=== PATIENT | female | born 1955 | race Caucasian/White ===

== ENCOUNTER 2025-06-10 23:41 | Observation (INO) | payer MEDICARE, BC, SELFPAY ==
[2025-06-10 17:46] VITALS: BP 160/106
[2025-06-10] MEDS: ROXICODONE 5 MG PO (21:27)
[2025-06-10 23:29] VITALS: BP 98/66
--- NOTE | 2025-06-10 23:46 | HPS.HSE ---
Family Physician
-
Family Physician: * NONE
Chief Complaint
-
right ankle and right wrist
History of Present Illness
69-year-old female without any medical history presenting with severe right ankle pain and swelling after she kicked a log today. After she kicked a log she lost her balance and fell onto her wrist with severe wrist pain. She also complains of
pain in her right knee.
She denies smoking or alcohol or drugs.
Medical History
Past Medical History
Past Medical History: Reports None
Past Surgical History: Reports None
Social History
Tobacco: Non-smoker
Family History
Family History: Not pertinent
Allergies / Home Medications
Allergies reflects when Allergies were last updated in [employer].
Home Medications with original date entered in [employer]
Allergy/Medication List:
Allergies
Allergy/AdvReac Type Severity Reaction Status Date / Time
No Known Allergies Allergy Unverified 06/10/25 17:48
Review of Systems
-
History Source: Patient
A 12 point ROS was completed and negative except as noted: Yes
Constitutional: Reports No Symptoms
EENT: Reports No Symptoms
Respiratory: Reports No Symptoms
Cardiac: Reports No Symptoms
Abdomen/GI: Reports No Symptoms
: Reports No Symptoms
Musculoskeletal: Reports See HPI
Skin: Reports No Symptoms
Neurological: Reports No Symptoms
Endocrine: Reports No Symptoms
Hematologic/Lymphatic: Reports No Symptoms
Psych: Reports No Symptoms
Physical Exam
Vital Signs
Vital Signs
Temp Pulse Resp BP Pulse Ox
98 F 98 18 98/66 97
06/10/25 17:46 06/10/25 23:29 06/10/25 23:29 06/10/25 23:29 06/10/25 23:29
Physical Exam
General: Well Developed, Well Nourished and No Apparent Distress
HEENT: NormoCephalic, Moist mucous membranes and Atraumatic
Respiratory: Clear
Cardiac: S1/S2 and Regular Rhythm; No Murmur or Rub
GI: Soft, Non Tender, Non Distended and Normal Bowel Sounds; No Organomegaly
Rectal: Deferred by Provider
Musculoskeletal: No Clubbing, No Cyanosis, No Edema and Other (swelling right ankle )
Skin: No Rash
Neuro: Nonfocal/grossly intact
Data Reviewed
-
Lab Data: Labs Reviewed by me
Old Records: Reviewed
Impression/Plan
-
IMPRESSION:
PLAN:
# Distal right radius/ulna fractures
# Nondisplaced distal right fibular/tibia fractures
-wrist splint placed, ankle splint to be plced
- Tylenol, Toradol for pain, oxycodone if needed
-Blood pressure dropped from 160-98 after receiving oxycodone
-Knee x-ray pending
-CBC BMP pending
- Ortho consulted
Full code
DVT prophylaxis-sequential left leg
Regular diet
--- NOTE | 2025-06-10 23:55 | ED.GENMED ---
History of Present Illness
General
Chief Complaint: Fall
Source: patient
Exam Limitations: none
Time Seen by Provider: 06/10/25 19:54
Nursing documentation reviewed up to this point in time: agreed with
History of Present Illness
History of Present Illness:
Note:
CHIEF COMPLAINT(S)
Fractured wrist and fractured ankle.
HISTORY OF PRESENT ILLNESS
The patient is a 69-year-old female who presents with a fractured wrist and ankle. The fractures are described as non-displaced and are considered good breaks, indicating they are not severely misaligned. The patient describes the injury as
occurring while trying to remove a log, during which she twisted her ankle and subsequently fell onto her wrist. She reports that the fractured wrist is particularly problematic because it hinders her ability to use crutches effectively.
Discussion involved potential management strategies and the consideration of admission to the hospital for rehabilitation due to the difficulty in ambulating safely at home with the current injuries. Theres also concern about the feasibility of
using a walker given the wrist injury. The possibility of using a walking boot at home is being explored, pending orthopedic consultation.
ADDITIONAL HISTORY OBTAINED FROM SOURCES OTHER THAN THE PATIENT
No additional history was provided from sources other than the patient in the conversation.
PHYSICAL EXAM
General: Alert, no acute distress.
Skin: Warm, dry.
Head: Normocephalic, atraumatic.
Neck: Supple, trachea midline.
Eye Ears, nose, mouth and throat: Oral mucosa moist.
Cardiovascular: Normal peripheral perfusion, No edema.
Respiratory: Respirations are non-labored.
Gastrointestinal: Abdomen nondistended.
Back: Normal range of motion, Normal alignment.
Musculoskeletal: Normal range of motion, normal strength, except as noted: Fractured wrist and ankle.
Neurological: Alert and oriented to person, place, time, and situation, No focal neurological deficit observed.
Psychiatric: Cooperative, appropriate mood & affect.
PLAN
The plan includes applying a splint for support and consulting with orthopedic specialists to explore the possibility of using a walking boot to aid mobility at home. The patient may need admission for short-term rehabilitation to ensure safety and
proper care due to the multiple fractures.
DIFFERENTIAL DIAGNOSIS
The Differential Diagnosis includes, in no particular order and is not limited to:
1. Ankle Fracture
2. Distal Radius Fracture
3. Wrist Sprain
4. Ankle Sprain
5. Osteoporosis-related Fracture
6. Soft Tissue Injury of Wrist
7. Ligamentous Injury to Ankle
8. Tibia Fracture
9. Fibula Fracture
10. Tendon Injury in Wrist
Disposition:
SUMMARY OF ENCOUNTER
The patient, a 69-year-old female, presented to the emergency department with a right wrist fracture and a right ankle fracture. Due to the wrist fracture, she is unable to effectively use crutches or a walker, impeding her ability to safely
ambulate at home, where there are multiple steps. These circumstances prompted consideration for her admission to the hospital for short-term rehabilitation. The fractures are non-displaced, indicating they are not severely misaligned or
necessitating emergency surgical intervention.
DISPOSITION
Admit.
MANAGEMENT OF THE PATIENTS CARE WAS DISCUSSED WITH
Hospitalist was informed and involved in the plan for the patients admission and potential rehabilitation needs.
PLAN
The patient will be admitted for further evaluation and management of her wrist and ankle fractures. Consultation with orthopedic specialists will continue to determine if splinting or other management strategies, such as a walking boot, could be
employed to aid in her mobility. Assessment for potential rehabilitation placement will be conducted to ensure safe and appropriate recovery given her living situation with multiple steps at home.
MEDICAL DECISION MAKING
-Complexity of Data Reviewed:
Ankle Fracture
Distal Radius Fracture
Wrist Sprain
Ankle Sprain
Osteoporosis-related Fracture
Soft Tissue Injury of Wrist
Ligamentous Injury to Ankle
Tibia Fracture
Fibula Fracture
Tendon Injury in Wrist
-Data:
Category 3
Discussion of management with other physician, healthcare provider, other source: Hospitalist was consulted and arrangements for potential rehabilitation placement were discussed. Coordination involved monitoring the potential need for orthopedic
consultation.
DIAGNOSIS
- Right Wrist Fracture: S62.90XA
- Right Ankle Fracture: S82.90XA
Phy Exam
Physical Exam
Physical Exam:
.
Course
Orders/Labs/Results
Orders:
Orders
06/10/25 17:48
Ankle, Right 3 view CR [CR Ankle - Right Min 3 Views *] Urgent
Comment:
Reason For Exam: fall
CR Wrist - Right Min 3 Views Urgent
Comment:
Reason For Exam: fall
06/10/25 21:24
Oxycodone [Roxicodone] 5 mg PO NOW STA
06/10/25 23:27
Knee, Right 4 or More Views [CR Knee- Right 4 Or More View*] Urgent
Comment:
Reason For Exam: pain after fall
06/10/25 23:40
BMP [Basic Metabolic Panel] Urgent
CBC/No Diff [Complete Blood Count/No Diff] Urgent
06/10/25 23:41
Admit/Transfer Patient As Directed
Co-Sign Provider:
Level of Care: Observation services
Assign to:: Medical/Surgical
Physician / Group: Bruce
Diagnosis: Wrist and Ankle Fracture
06/10/25 23:44
PRN Pain Medication Management As Directed
May give lesser potent ordered pain med per pt: Yes
preference::
Protocol:: Medication orders for pain may be administered in a
manner that supports deferring to patient preference
when the pt is:
- Requesting an ordered lesser potent pain medication.
Least to most potent pain medications are defined
as: acetaminophen < NSAID < tramadol < opioids
(morphine, oxycodone, hydromorphone).
- Requesting a lesser dose of the same medication IF
ORDERED.
- Requesting a less intrusive route of administration
if both routes are prescribed by the provider (PO <
IV).
06/10/25 23:45
Code Status As Directed
Resuscitation Status: Full Code
06/11/25 00:00
Case Management Consult ONCE
Case Management Consult: Discharge Planning
06/11/25 00:18
Acetaminophen [Tylenol] 1,000 mg PO Q6HPRN PRN
Ketorolac [Toradol] 10 mg IV Q6HPRN PRN
Oxycodone [Roxicodone] 2.5 mg PO Q4HPRN PRN
06/11/25 00:18
ORTHOPEDIC CONSULT Routine
Consulting Provider: Rishabh Allen
Was physician already notified: Yes
Activity As Directed
Activity Level: Out of Bed- Chair
Bladder Scan As Directed
Follow Bladder Retention/Intermittent Cath Algorithm?: Yes
PRN if no void in __ hours: 6
Frequency: Per Retention Algorithm
If Bladder Scan Result >: 400
then:: Straight cath
Pneumatic Compression Sleeves As Directed
Type: Knee high
Straight Cath As Directed
Frequency: Per Retention Algorithm
Additional Instructions: straight cath as needed per acute urinary retention algorithm for 24 hrs
Additional Instructions: for bladder scan greater than 400 mL
Vital Signs As Directed
Frequency: Per unit guidelines
Weight Bearing Status As Directed
Weight bearing to: Right lower extremity
Type: Non Wt. bearing
Weight Bearing Status As Directed
Weight bearing to: Right upper extremity
Type: Non Wt. bearing
Ot Eval And Treat Routine
Pt Eval And Treat Routine
Activity Level: Out of Bed-Early Mobility
DX Deep Vein Thrombosis Video Routine
06/11/25 22:00
Latanoprost [Xalatan Ophthalmic Solution] 1 drop BOTH EYES HS
Vital Signs
Initial and Last Documented VS:
Initial Vital Signs
Temp Pulse Resp BP Pulse Ox
98 F 94 16 160/106 98
06/10/25 17:46 06/10/25 17:46 06/10/25 17:46 06/10/25 17:46 06/10/25 17:46
Last Documented Vital Signs
Temp Pulse Resp BP Pulse Ox
98.6 F 85 19 159/82 97
06/11/25 01:02 06/11/25 01:02 06/11/25 01:02 06/11/25 01:02 06/11/25 01:02
*Radiology
Radiology exam reviewed: radiology read reviewed
*Pulse Oximetry
SaO2: 97
Oxygen Mode of Delivery: Room air
Patient hypoxic: no
*Critical Care Note
Total Time (30-74mins, 75-104mins- exclusive of procedures): Not Applicable
ED Attending Note
-
Portions of this chart may have been created with voice recognition software.� Occasional wrong word or��sound alike� substitutions may have occurred due to the inherent limitations of voice recognition software.
Discharge Plan
Departure
Patient Disposition: Admit
Date of Disposition: 06/10/25
Time of Disposition: 23:55
Presentation/result/management discussed w/ accepting MD/DO: Hospitalist
Condition: Fair
Discharge Problem:
Ankle fracture, Fracture of wrist
Interventions
Interventions:
*Risk Screen - Suicide Last Done: 06/11/25 01:00
*General Assessment Last Done: 06/10/25 21:48
*Neglect/Abuse Screening Last Done: 06/10/25 17:49
*ED COVID-19 Vaccine History Last Done: 06/11/25 01:00
*ED Influenza Vaccine History Last Done: 06/10/25 21:48
*Nursing Disposition Last Done: 06/11/25 00:47
ED-Musculoskeletal Assessment Last Done: 06/10/25 21:48
ED- Neurological Assessment Last Done: 06/10/25 21:48
ED-Skin Assessment Last Done: 06/10/25 21:48
[2025-06-11] MEDS: TORADOL 10 MG IV (00:26)
[2025-06-11 00:33] LABS: Hematocrit 41.5 % (37.0-47.0); Hemoglobin 13.4 g/dL (12.0-16.0); Mean Corp Hgb Conc. 32.3 g/dL (33.0-37.0); Mean Corpuscular Volume 93.9 fL (81.0-99.0); Platelet Count 260 10^3/uL (130-400); Red Cell Dist. Width 13.4 % (11.5-14.5)
[2025-06-11 00:48] LABS: Blood Urea Nitrogen 16 mg/dl (7-17); Calcium 8.8 mg/dl (8.4-10.2); Carbon Dioxide 28 mmol/L (22-30); Chloride 103 mmol/L (98-107); Glucose 130 mg/dl (70-99); Potassium 3.9 mmol/L (3.5-5.1); Sodium 138 mmol/L (135-145); eGFR > 60.00
--- NOTE | 2025-06-11 00:50 | PTCARENOTE ---
Pt arrived to 2S @0050 from ED. Pt safely transferred from the stretcher to the bed. Pt AOX3, VSS. Admission assessment complete. Pt oriented to room, call jensen within reach, bed locked in lowest position, care ongoing.
[2025-06-11 01:02] VITALS: BP 159/82; BMI 38.9
--- NOTE | 2025-06-11 03:30 | DOWNTIME ---
There was a [employer] Member Downtime on 06/11/2025 from 0100 to 06/11/2025 at 0255. Downtime documentation of patient's care, including medication administrations, has been reconciled in the electronic record per guidelines. Refer to the
patient's paper chart under the miscellaneous tab to see printed paper medication records and downtime forms.
[2025-06-11] MEDS: ROXICODONE 2.5 MG PO ×2 (04:18→16:14)
[2025-06-11 07:00] VITALS: BP 152/86
--- NOTE | 2025-06-11 09:46 | CON.ORTHO ---
Consultation
-
Date/Time Consultation Requested: 06/11/2025; time unknown
Date/Time Consultation Performed: 06/11/2025; 0730
Requesting Provider: unknown
Performing Provider: Mandy Winters PA-C for Dr. Rishabh Allen
Reason for Consultation: Right distal radius fracture; right ankle fracture
Consultation - Orthopedics
History
Elizabeth is a 69 year old female with no reported past medical history seen today for her right wrist and ankle. She reports she was attempted to kick a log into the [employer], but lost her balance and fell. She reports immediate onset of pain in her
wrist and ankle. She was able to get herself to a phone to call her son for assistance. They brought her to ED for evaluation where x-rays revealed a distal radius fracture and distal tib/fib fracture. These were both splinted in the emergency
department. She is resting comfortably in bed this morning, but does endorse pain in both of these areas. She denies pain elsewhere.
Allergies / Home Medications
Allergy/AdvReac Type Severity Reaction Status Date / Time
No Known Allergies Allergy Unverified 06/10/25 17:48
�Medication �Instructions �Recorded
latanoprost 0.005 % eye drops 1 drp ophthalmic (eye) HS 06/10/25
Vital Signs / Lab Results
Temp Pulse Resp BP Pulse Ox
98.4 F 80 20 152/86 95
06/11/25 07:00 06/11/25 07:00 06/11/25 07:00 06/11/25 07:00 06/11/25 07:00
06/11/25 00:23
06/11/25 00:23
XR Right Ankle FINDINGS:
Bones: There is a nondisplaced oblique fracture of the distal fibular shaft. There is a similar finding of the distal tibia involving the metadiaphysis...
Ankle mortise: The ankle mortise is preserved.
Soft tissue: There is severe soft tissue swelling about the lateral malleolus. There is mild soft tissue swelling about the medial malleolus.
XR Right Wrist FINDINGS:
There is an acute comminuted impacted right distal radial metaphyseal fracture. There is mild convex ventral angulation. The fracture extends to the radiocarpal joint..
There is an acute is minimally displaced transverse fracture of the base of the ulnar solid process.
There is mild osteophyte formation, joint space narrowing and sclerosis of the first carpometacarpal joint.
Directed exam of the right upper extremity reveals splint in place. Good color and warmth of fingers. Expected edema of the fingers. Patient able to wiggle fingers. Sensation intact to light touch. NVID.
Directed exam of the right lower extremity reveals splint in place. Tenderness about the distal fibula and distal tibia. Good color and warmth of toes. Patient able to wiggle toes. Sensation intact to light touch. NVID.
Assessment / Plan
Comminuted, shortened, dorsally angulated fracture of the distal radius
--Unfortunately, Elizabeth sustained a distal radius fracture in her fall. Given the degree of shortening and displacement, I recommend proceeding with surgical fixation of her fracture. We discussed the risks, benefits, alternatives, recovery process
and potential complications of open reduction internal fixation. She verbalized understanding and would like to proceed with surgery. We are hoping to be able to proceed with surgery today under the direction of Dr. Quiñonez pending OR availability.
Surgical and blood consent signed and placed on patient chart.
--NPO until surgery.
--Maintain splint until surgery.
--NWB to RUE until surgery.
--Pain control prn. Ice and elevation for pain and edema control.
--Abx ordered to OR.
Nondisplaced fractures of the distal fibula and tibia
--Unfortunately, Elizabeth also sustained fractures of her distal fibula and tibia. Thankfully, these are subtle and nondisplaced. These were reviewed with Dr. Allen who is in agreement that we can proceed with non-surgical intervention for now.
--She should continue with immobilization in her splint.
--She should remain non-weight bearing to her right lower extremity for now.
--Pain control prn. Ice and elevation for edema control.
[2025-06-11] MEDS: DILAUDID 0.25 MG IV (10:49)
--- NOTE | 2025-06-11 11:50 | W.PN.HOSP.TC ---
Today's Communication/Plan
-
Ortho likely taking her to the OR.
Assessment / Plan
Assessment / Plan
Physical exam:
General: Acutely ill
HEENT: Normocephalic, Atraumatic and Moist Mucous Membranes
Respiratory: Clear to Auscultation; Negative Wheezes, Rales or Rhonchi
Cardiac: Regular Rhythm and S1/S2
GI: Soft, Nontender and Nondistended
Musculoskeletal: Immobilized right wrist and right lower extremity. No Clubbing, No Cyanosis and No Edema
Neuro: Awake, Alert and Oriented, no neurological deficits
Psych: Calm
A/P:
Distal radius fracture (comminuted, shortened, dorsally angulated):
Orthopedic consult appreciated
Keep n.p.o.
Pain control
Patient with good exercise tolerance prior to admission therefore okay to go for surgery. Obtain twelve-lead EKG preop.
Plan for surgery possibly today
Distal fibula and tibia fractures (nondisplaced):
Continue immobilization with splint
Orthopedic feels there is no need for surgical intervention but recommended remain nonweightbearing to her right lower extremity for now.
Continue pain control
Isolated low blood pressure reading/hypotension due to medication:
Blood pressure remains on the high side
Continue to monitor
Leukocytosis:
Likely reactive
DVT prophylaxis:
SCDs
CODE STATUS:
Full code
Anticipated Discharge: 24 - 48 hours
Subjective/Interval History
-
Date of Service: June 11, 2025
Patient pain in right arm and right leg. No chest pain or shortness of breath. Afebrile
Objective Data
-
Labs:
Laboratory Results
06/11/25
00:23
WBC 13.6 H
Hgb 13.4
Hct 41.5
Plt Count 260
Sodium 138
Potassium 3.9
Chloride 103
Carbon Dioxide 28
BUN 16
Creatinine 0.6
Glucose 130 H
Calcium 8.8
Vital Signs:
Vital Signs
Temp Pulse Resp BP Pulse Ox
98.4 F 80 20 152/86 95
06/11/25 07:00 06/11/25 07:00 06/11/25 07:00 06/11/25 07:00 06/11/25 07:00
--- NOTE | 2025-06-11 15:23 | CM ---
Met with patient and family at bedside
pharmacy verified: [facility] @ [address]
Family Physician verified: Anabelle Ellsworth MD ; [address], [facility], [place] [address]; Phone+
Lives alone, multilevel home; 4 steps to enter; 12-13 steps to 2nd floor bedroom; railings on stairs; bathroom on 1st floor, tub w/ shower
PLOF: reported she was independent with ambulation, stairs and ADLs; no DME;
NO history of SNF or Home Health
Transport to be determined
If her Sister can manage the care needed, patient would prefer to stay at her Sister's one floor home; 6 steps to enter
SNF may be needed if 24/7 care in her home or her sister's home cannot be provided
Disposition when stable for discharge to be determined after Surgery
[2025-06-11 16:00] VITALS: BP 154/90
[2025-06-11] MEDS: TYLENOL 1000 MG PO (16:13)
[2025-06-11] MEDS: XALATAN OPHTHALMIC SOLUTION 1 DROP BOTH EYES (21:27)
[2025-06-11] MEDS: ROXICODONE 5 MG PO (21:27)
[2025-06-11 23:56] VITALS: BP 151/71
[2025-06-12 07:00] VITALS: BP 136/73
[2025-06-12] MEDS: TORADOL 10 MG IV ×2 (07:26→17:15)
[2025-06-12] MEDS: HEPARIN 5000 UNITS SC ×3 (07:29→23:48)
--- NOTE | 2025-06-12 07:30 | W.PN.UPDATE ---
Update Note
Progress Note Update
Patient unfortunately has comminuted/displaced right distal radius fracture which is going to require open reduction internal fixation when surgeon/OR time can accommodate. She will remain in splint for now and do ice with elevation. CT scan right
lower extremity shows comminuted distal fibular fracture which is nondisplaced and a posterior malleolus fracture. Splint in place right upper extremity/fracture boot right lower extremity and distal neurovascular was intact. Tentatively plan will
remain with fracture boot and nonweightbearing right lower extremity. Ice with elevation to control swelling and pain. Pain medication as needed and mechanical devices for DVT prophylaxis. At the moment it appears as though right wrist will be
fixed June 18, [address] Quiñonez (subject to change).
--- NOTE | 2025-06-12 09:08 | W.PN.HOSP.TC ---
Today's Communication/Plan
-
Discharge disposition
Assessment / Plan
Assessment / Plan
Physical exam:
General: No acute distress
HEENT: Normocephalic, Atraumatic and Moist Mucous Membranes
Respiratory: Clear to Auscultation; Negative Wheezes, Rales or Rhonchi
Cardiac: Regular Rhythm and S1/S2
GI: Soft, Nontender and Nondistended
Musculoskeletal: Immobilized right wrist and right lower extremity. No Clubbing, No Cyanosis and No Edema
Neuro: Awake, Alert and Oriented, no neurological deficits
Psych: Calm
A/P:
Distal radius fracture (comminuted, shortened, dorsally angulated):
Orthopedic consult appreciated
Unfortunately surgery postponed for 06/18
Pain control
Patient with good exercise tolerance prior to admission therefore okay to go for surgery. Twelve-lead EKG preop looks fine.
Discussed with son at bedside
manager market research for discharge disposition
Distal fibula and tibia fractures (nondisplaced):
Continue immobilization with splint
Orthopedic feels there is no need for surgical intervention but recommended remain nonweightbearing to her right lower extremity for now.
Continue pain control
Isolated low blood pressure reading/hypotension due to medication:
Blood pressure stable
Continue to monitor
Leukocytosis:
Likely reactive
Patient does not want any more blood work-it is not unreasonable since he does not have any signs of infection at the moment.
DVT prophylaxis:
SCDs
CODE STATUS:
Full code
Anticipated Discharge: Today
Subjective/Interval History
-
Date of Service: June 12, 2025
Patient with right arm and right leg discomfort. No chest pain or shortness of breath. Remains afebrile
Objective Data
-
Labs:
Laboratory Results
06/12/25
06:00
WBC Pending
Hgb Pending
Hct Pending
Plt Count Pending
Sodium Pending
Potassium Pending
Chloride Pending
Carbon Dioxide Pending
BUN Pending
Creatinine Pending
Glucose Pending
Calcium Pending
Vital Signs:
Vital Signs
Temp Pulse Resp BP Pulse Ox
98.2 F 71 14 136/73 97
06/12/25 07:00 06/12/25 07:00 06/12/25 07:00 06/12/25 07:00 06/12/25 07:00
I&O
06/11/25 06/12/25 06/13/25
06:59 06:59 06:59
Intake Total 720 / 720
Balance 720 / 720
[2025-06-12 14:26] VITALS: BP 167/91; PULSE 83
[2025-06-12 15:00] VITALS: BP 154/90
--- NOTE | 2025-06-12 15:21 | CM ---
CM following re: discharge planning.
Reviewed pt's chart, met with pt.
PT and POT evaluations noted - SNF level of care recommended. Pt is OBS, not eligible for SNF level of care. CM called [facility] and was told that pt is not a member of [facility].
Pt is aware, expressed her disappointed feelings. Pt is aware of private pay option or VN services. Pt will decide.
D/C plan: most likely home with VN and sister support.
CM will follow with discharge plan updates as hospitalization progresses
[2025-06-12 23:18] VITALS: BP 152/81
[2025-06-12] MEDS: XALATAN OPHTHALMIC SOLUTION 1 DROP BOTH EYES (23:48)
[2025-06-13 08:18] VITALS: BP 138/73
[2025-06-13] MEDS: TORADOL 10 MG IV (08:33)
[2025-06-13] MEDS: HEPARIN 5000 UNITS SC (08:35)
[2025-06-13] MEDS: TYLENOL 1000 MG PO (08:38)
--- NOTE | 2025-06-13 08:50 | W.PN.HOSP.TC ---
Today's Communication/Plan
-
Discharge planning
Assessment / Plan
Assessment / Plan
Physical exam:
General: No acute distress
HEENT: Normocephalic, Atraumatic and Moist Mucous Membranes
Respiratory: Clear to Auscultation; Negative Wheezes, Rales or Rhonchi
Cardiac: Regular Rhythm and S1/S2
GI: Soft, Nontender and Nondistended
Musculoskeletal: Immobilized right wrist and right lower extremity. No Clubbing, No Cyanosis and No Edema
Neuro: Awake, Alert and Oriented, no neurological deficits
Psych: Anxious
A/P:
Distal radius fracture (comminuted, shortened, dorsally angulated):
Orthopedic consult appreciated
Unfortunately surgery postponed for 06/18
Pain control
Patient with good exercise tolerance prior to admission therefore okay to go for surgery. Twelve-lead EKG preop looks fine.
Discussed with son at bedside prior
Acute rehab consulted today
assisted living manager for discharge disposition
Distal fibula and tibia fractures (nondisplaced):
Continue immobilization with splint
Orthopedic feels there is no need for surgical intervention but recommended remain nonweightbearing to her right lower extremity for now.
Continue pain control
Isolated low blood pressure reading/hypotension due to medication:
Blood pressure stable
Continue to monitor
Leukocytosis:
Likely reactive
Patient does not want any more blood work-it is not unreasonable since he does not have any signs of infection at the moment.
DVT prophylaxis:
SCDs
CODE STATUS:
Full code
Anticipated Discharge: Today
Subjective/Interval History
-
Date of Service: June 13, 2025
Patient with some pain in extremities. She is concerned about discharge planning and wants to discuss with pillowcase cutter.
Objective Data
-
Vital Signs:
Vital Signs
Temp Pulse Resp BP Pulse Ox
97.9 F 79 16 138/73 96
06/13/25 08:18 06/13/25 08:18 06/13/25 08:18 06/13/25 08:18 06/13/25 08:18
I&O
06/12/25 06/13/25 06/14/25
06:59 06:59 06:59
Intake Total 720 / 720 660 / 660
Balance 720 / 720 660 / 660
--- NOTE | 2025-06-13 09:34 | W.PN.UPDATE ---
Update Note
Progress Note Update
This morning patient is comfortable. Pain has been well-controlled. She is tolerating splint right upper and lower extremity. Minimal edema noted. Distal neurovascular intact. Unfortunately due to OR availability open reduction internal
fixation right wrist under direction of Dr. Quñionez tentatively scheduled Monday, June 18, 2025 midday. Until then ice with elevation right upper and lower extremity to control swelling and edema. Strict nonweightbearing right upper and
lower extremity. I am going to consult [facility] to fit patient for a high tide fracture boot right lower extremity. Could consider [facility] but would need to coordinate patients return for surgery. Orthopedics to follow.
--- NOTE | 2025-06-13 09:56 | CM ---
Addendum entered by Chelsi Rajput 06/13/25 12:35:
Spoke with sister Charis to confirm her address as [address] [address] Sister is getting a BSC, a walker with a seat and w/c if needed
Addendum entered by Chelsi Rajput 06/13/25 12:25:
[facility] she would not meet the criteria for admission at this time. Discussed with Dr. Salcedo, PT and OT in addition to patient. Boot delivery pending. Patient is agreeable with dc to sister in [place] with VN. WIll send VN
referral via careport and follow up with PT after boot delivery
LVM with sister at [phone] to confirm address
Addendum entered by Chelsi Rajput 06/13/25 11:45:
PT note reviewed with Dr. Salcedo. Referral sent to [facility] via [facility] and spoke with Gely [phone]
Original Note:
Chart reviewed
Spoke with patient at bedside briefly
She was told that she would need to have her arm operated
Per pt PT and OT eval pending
Will follow up for any dcp needs
--- NOTE | 2025-06-13 13:02 | CON.MD ---
Consultation - Medical
-
Chief Complaint:�Debility after right wrist leg fractures
�
History of Present Illness:�69-year-old female with PMH (as below) presented to [facility] on 06/10/2025 right ankle and wrist pain following a fall. She was found to have right distal radius and ulna fractures as well as right tip/fib
fractures. She was seen by orthopedics. With the comminuted short dorsally angulated fracture of the distal radius she will require surgical intervention. Nonweightbearing to the right upper extremity. Should be nonweightbearing right lower
extremity but no surgical intervention needed with immobilization in a splint.
�
Past Medical History:�None
Procedure History:�None
Family History:�None pertinent
�
Social History:�
Functional Level Premorbidly:�Independent with all activities�
Functional Level Currently:�Supervision bed mobility, mod assist transfers.
�
Tobacco:�Denies�
Alcohol:�Denies�
Drug use:�Denies�
�
Lives with:�Alone but plans to stay with sister who has a first-floor set up with 4 steps to enter.
Driving:�Yes
Occupation:�Retired
�
�
Allergies:�
Allergy/AdvReac Type Severity Reaction Status Date / Time
No Known Allergies Allergy Unverified 06/10/25 17:48
�
Review of Systems:�
Constitutional: (x) abNormal _tired
Eye: (x) Normal _
Ear/Nose/Throat: (x) Normal _
Respiratory: (x) Normal _
Cardiovascular: (x) Normal _
Gastrointestinal: (x) Normal _
Genitourinary: (x) Normal _
Musculoskeletal: (x) abNormal _right wrist and ankle pain
Integumentary: (x) Normal _
Neurologic: (x) Normal _
Psychiatric: (x) Normal _
Endocrine: (x) Normal _
Hematologic/Lymphatic: (x) Normal _
Allergic/Immunologic: (x) Normal _
�
Medications:�
Active Current Visit Medication List
Category Date Time Status
Acetaminophen [Tylenol] Med 06/11/25 00:18 Active
1,000 mg PO Q6HPRN PRN
Flush (0.9% Sodium Chloride) [Flush (Nss)] Med 06/11/25 01:00 Active
See Dose Instructions IV PER PROTOCOL
HYDROmorphone [Dilaudid] Med 06/11/25 10:42 Active
0.25 mg IV Q4HPRN PRN
Heparin Med 06/12/25 08:00 Active
5,000 units SC Q8
Ketorolac [Toradol] Med 06/11/25 00:18 Active
10 mg IV Q6HPRN PRN
Latanoprost [Xalatan Ophthalmic Solution] Med 06/11/25 22:00 Active
1 drop BOTH EYES HS
Oxycodone [Roxicodone] Med 06/11/25 00:18 Hold
2.5 mg PO Q4HPRN PRN
�
Vitals:�
Temp Pulse Resp BP Pulse Ox
97.9 F 79 16 138/73 96
06/13/25 08:18 06/13/25 08:18 06/13/25 08:18 06/13/25 08:18 06/13/25 08:18
Height 5 ft 4 in
Actual Weight 102.693 kg
Body Mass Index (BMI) 38.9
�
Physical Exam:�
General Appearance/Observation: Well-developed, well-nourished female in no apparent distress.�
Pain/Comfort Assessment: right wrist and ankle
Mood/Affect: Appropriate�
�
Integumentary/Operative Site:�No open lesion noted. Right wrist IVET wrapped, left ankle boot.
�
Eyes: Conjunctiva/Lids: normal��� Pupils: pupils equal round and reactive to light
Ears/Nose/Throat: oral mucosa moist, throat clear.������������ Lips/Teeth/Gums: normal
Cardiovascular: Heart: regular, no murmur�
Pulses: dorsalis pedis 2+ bilaterally�
Respiratory: Respiratory Effort/Chest Expansion: normal������ Auscultation: Clear to auscultation bilaterally
Gastrointestinal: abdomen not tender, no distension, normal abdominal bowel sounds
Genitourinary: No Up�
Rectal Exam: Deferred�
Extremities:�Edema: Mild right ankle and foot edema�Cyanosis: None�Trophic�changes: None
�
Neurology Exam:
Orientation: Alert, Oriented to self, Time, Place�
Memory: Intact for recent medical concerns
Comprehension: Intact
Two step command: Intact
Cranial Nerves:
�� CNII:�Pupillary light reflex: Intact���
�� CN VII:�Facial movement: Symmetric
�� CN VIII:�Hearing: Normal
�� CN IX/X:�Speech & swallow: Normal,�Position of Uvula: Midline
�� CN XI:�Shoulder shrug: Symmetric
�� CN XII:�Tongue protrusion: Midline
Sensory:
�� Light touch: Intact in bilateral upper and lower extremities
�
Musculoskeletal: Motor: (Manual muscle scale 0-5)�
Muscle SA EF WE EE FF FA HF KE DF EHL PF
Right� 5 >3 NT >3 NT NT 3 NT NT NT NT
Left 5 5 5 5 5 5 5 5 5 5 5
��
Lab Results
Laboratory Data
06/12/25 06:00
06/12/25 06:00
�
Diagnostic Results:�as per HPI�
�
Assessment
69-year-old right-handed female with right distal radius/ulna and right tib-fib fractures awaiting right radial fixation surgery with ADL and ambulatory dysfunction.
Plan�
PM&R�PT/OT to increase independence with ADLs, improve balance, coordination, endurance, strength, mobility, community reintegration, decreased burden of care on others and family education.�
�
Right radial/ulnar fractures: Nonweightbearing. Plan for fixation. Please note if patient will be weightbearing or not after fixation. Please also note if she can use a platform walker.
Right tib-fib fracture: Nonweightbearing in a high tide fracture boot
Psych: Psychology consult.� Monitor mood, adjust medications as needed.��
Pain: acetaminophen, ketorolac, or IV Dilaudid as needed.�
Bowel: Colace and Senna, PRN bisacodyl.�
Bladder: No concerns
DVT Prophylaxis: Heparin.�
Pulmonary: Incentive spirometry�
Type II obesity: Continue to student assistance counselor patient about diet adjustments to control obesity. Body habitus and increased force to move body and extremities causes further difficulty with functional tasks.�
Safety: Continue to reinforce assistance with all transfers.�
Code Status:� Full code
Dispo�(date/plan/equipment needs): Home with family care.� Social history reviewed.�
Discharge Destination:�Discussed with patient. She is planning to go home with her sister. Could go to SNF if did not have support.
Thank you for allowing me to care for your patient. Please contact me with any questions or concerns.
Consultation
-
Date/Time Consultation Requested: 06/13/25
Date/Time Consultation Performed: 06/13/25
Requesting Provider: Dr. Ricardo Salcedo
Performing Provider: Dr. Renan Diehl
Reason for Consultation: Ankle fracture
--- NOTE | 2025-06-13 15:45 | CM ---
Kendra delivered and pt ready for DC
Ambulance transport set up at 5:30 pm
Spoke with Qian at [facility] intake and they will open her case this weekend.
Pt and son made aware of her discharge at 5:30 pm
[2025-06-13 15:55] VITALS: BP 132/83
--- NOTE | 2025-06-13 16:15 | W.DCSUMMARY ---
Discharge Summary
Discharge Data
Date of Admission: 06/10/25
Date of Discharge: 06/13/25
-
Pending Results: No
Hospital Course
Patient is 69 years old female presented to the hospital after a fall sustaining right distal radius and ulna fractures as well as right tib-fib fractures. Orthopedic consulted. She was given pain medications. She was also placed on immobilizers
and nonweightbearing to the right upper and lower extremity. Orthopedic recommended no surgical intervention on the right lower extremity and recommended surgical intervention of the right upper extremity but unfortunately there was no availability
until 06/18. Rehab was consulted and not a candidate for acute rehab at the moment. She did not qualify for SNF. meat department manager discussed options of discharge disposition with patient and family. Ultimately was decided that she would go home with
her sister with arrangement of home health. Plan to do surgery on the right upper extremity this coming week as mentioned above. No other events were noticed. She has been discharged in relatively stable condition today.
Discharge Plan
-
Patient Disposition: Home with Home Care
Discharge Diagnosis/Procedures: Fracture of distal radius. Fracture of distal tibia and fibula.
Condition: Good
Diet: Low Cholesterol
Activity: Other activity
Additional Activity: As instructed by orthopedic
Blood Work: Please PCP to order CBC, BMP within 1 week
Other Services: VN
Referrals:
Primary care provider [Other] - in less than 1 week
NONE,* [Family Provider, Internal Medicine]
Jay Quiñonez MD [Active, Orthopedics] - in less than 1 week
Prescriptions:
New
acetaminophen [Tylenol Extra Strength] 500 mg Tablet
1,000 mg PO Q6HPRN PRN (Reason: mild pain, fever) Qty: 20 0RF
oxycodone 5 mg Tablet
2.5 mg PO Q4HPRN PRN (Reason: Severe pain) Qty: 20 0RF
Continued
latanoprost 0.005 % drops
1 drp ophthalmic (eye) HS
Discharge Orders:
Discharge Patient (As Directed); Ordered 06/13/25
Ordered By: Ricardo Salcedo
Discharge Date and Time
Discharge Date/Time: 06/13/25 18:35
Print Language: [place]
--- NOTE | 2025-06-13 16:18 | CM ---
TC from [facility], they can accept patient.
[facility]-
[2025-06-13 16:19] VITALS: BP 132/83
[2025-06-13] MEDS: HEPARIN SC (17:00)
== END 2025-06-13 18:35 | disposition home health service (06) ==
LOC: 2 SOUTH 23:41
PROVIDERS: Physician Assistant Medical; ADMITTING PHYSICIAN Hospitalist; ATTENDING PHYSICIAN Hospitalist; CONSULT PHYSICIAN Orthopaedic Surgery; CONSULT PHYSICIAN Physical Medicine & Rehabilitation; EMERGENCY PHYSICIAN Student in an Organized Health Care Education/Training Program
DX: S82.831A Other fracture of upper and lower end of right fibula, initial encounter for closed fracture (principal); S82.51XA Displaced fracture of medial malleolus of right tibia, initial encounter for closed fracture; S52.691A Other fracture of lower end of right ulna, initial encounter for closed fracture; S52.591A Other fractures of lower end of right radius, initial encounter for closed fracture; W01.0XXA Fall on same level from slipping, tripping and stumbling without subsequent striking against object, initial encounter; D72.829 Elevated white blood cell count, unspecified; E66.9 Obesity, unspecified; Z68.38 Body mass index [BMI] 38.0-38.9, adult; I95.2 Hypotension due to drugs; Z79.899 Other long term (current) drug therapy
CPT/HCPCS: 29125; 29505; 73110; 73564; 73610; 73700; 80048; 85027; 93005; 97116; 97163; 97167; 97530; 97535; 99284; G0378

== ENCOUNTER 2025-06-18 06:12 | Day surgery (SDC) | payer MEDICARE, BC, SELFPAY ==
--- NOTE | 2025-06-17 10:50 | CM ---
Addendum entered by Eli Ferraro 06/17/25 11:37:
manager retail store reached out to [facility] and briefcase sewer will need to send a referral for home PT/OT tomorrow after surgery and once WB instructions have been obtained.
[facility]' Home care

Addendum entered by Eli Ferraro 06/17/25 11:08:
[facility]-
Original Note:
manager retail store reviewed patient's chart and patient has been scheduled for surgery tomorrow 06/18/25, briefcase sewer received a call that patient needed transportation to her surgery, [facility] to her
sister's home with [facility] visiting nurses, [address] in [place], briefcase sewer reached out to Acute care transport and patient was made aware that cost of transport to hospital by ambulance is $485 and to return to home is another $485
for transport, patient was provided with telephone number to Acute care ambulance [phone] to pay for transportation. shift production supervisor time from patient's home is 10am for an 11am arrival, and pick from hospital to home is 5pm.
Plan; Patient is for surgery tomorrow, 06/18/25 patient has transport set up at 10am, patient has been set up with [facility] services after discharge.
[2025-06-18] VITALS (11 sets, daily range): BP systolic 137–187; BP diastolic 74–163; BMI 38.9
[2025-06-18] MEDS: CELEBREX 200 MG PO (12:41)
[2025-06-18] MEDS: TYLENOL 1000 MG PO (12:41)
[2025-06-18] MEDS: NORMOSOL-R/PLASMALYTE-A 1000 IV (12:44)
[2025-06-18] MEDS: DILAUDID 0.5 MG IV ×2 (13:57→14:06)
[2025-06-18] MEDS: DILAUDID 0.25 MG IV (14:23)
--- NOTE | 2025-06-18 15:18 | CM ---
CM updated [facility].
[2025-06-18] MEDS: ROXICODONE 5 MG PO (15:50)
--- NOTE | 2025-06-18 16:08 | CM ---
As per [facility]'s home Care, patient was seen for a non-admit due to no staffing and care that exceeded home care options. [facility]'s Home care denied.
Patient was then referred to [facility]. CM updated public service representative Gladis to consider for home care.
CM will follow up with Gladis.
== END 2025-06-18 17:10 | disposition home or self-care (01) ==
LOC: SDS 06:12
PROVIDERS: ATTENDING PHYSICIAN Orthopaedic Surgery Hand Surgery
DX: S52.571A Other intraarticular fracture of lower end of right radius, initial encounter for closed fracture (principal); W19.XXXA Unspecified fall, initial encounter
CPT/HCPCS: 25608; C1713